=== PATIENT | male | born 1965 | race Caucasian/White ===

== ENCOUNTER 2018-02-22 16:29 | Emergency (ER) | payer MEDICAID ==
[2018-02-22 21:42] VITALS: BP 118/73
== END 2018-02-22 21:42 | disposition home or self-care (01) ==
LOC: ED 16:29
DX: S52.501A Unspecified fracture of the lower end of right radius, initial encounter for closed fracture (principal); S01.81XA Laceration without foreign body of other part of head, initial encounter; W11.XXXA Fall on and from ladder, initial encounter; Y93.89 Activity, other specified; Y92.89 Other specified places as the place of occurrence of the external cause; Y99.8 Other external cause status
CPT/HCPCS: A4570; J2001

== ENCOUNTER 2018-02-24 12:18 | Emergency (ER) | payer MEDICAID ==
[~2018-02-24] VITALS: Ht 172.7 cm; Wt 76.2 kg
[2018-02-24 12:23] VITALS: BP 137/85; Ht 172.7 cm; Wt 76.2 kg
== END 2018-02-24 13:18 | disposition home or self-care (01) ==
LOC: ED 12:18
DX: S01.81XD Laceration without foreign body of other part of head, subsequent encounter (principal); W11.XXXD Fall on and from ladder, subsequent encounter
CPT/HCPCS: 90715

== ENCOUNTER 2018-02-27 18:02 | Emergency (ER) | payer MEDICAID ==
[~2018-02-27] VITALS: Ht 167.6 cm; Wt 78.0 kg
[2018-02-27 18:18] VITALS: BP 125/68; Ht 167.6 cm; Wt 78.0 kg
== END 2018-02-27 19:14 | disposition home or self-care (01) ==
LOC: ED 18:02
DX: S01.81XD Laceration without foreign body of other part of head, subsequent encounter (principal); X58.XXXD Exposure to other specified factors, subsequent encounter